=== PATIENT | female | born 1960 | race Caucasian/White ===

== ENCOUNTER 2024-07-05 16:15 | Emergency (ER) | payer MEDICARE, OTHER ==
[~2024-07-05] VITALS: Ht 154.9 cm; Wt 70.3 kg
[2024-07-05 16:30] VITALS: TEMP 98.6
[2024-07-05 18:03] LABS: CORONAVIRUS COVID-19 AG NEGATIVE (NEGATIVE); INFLUENZA A AG NEGATIVE (NEGATIVE); INFLUENZA B AG NEGATIVE (NEGATIVE)
[2024-07-05 19:45] VITALS: PULSE 81; RESP 19
[2024-07-05 20:03] VITALS: PULSE 72; RESP 16; O2SAT 93
[2024-07-05] MEDS: ALBUTEROL/IPRATROPIUM 3 ML NEB NEB ONE (20:03)
[2024-07-05] MEDS ORDERED: PREDNISONE50 MG PO (20:15)
[2024-07-05] MEDS ORDERED: VENTOLIN HFA18 GM INH (20:15)
[2024-07-05 20:19] VITALS: BP 124/73; PULSE 86; RESP 20; TEMP 97.8; O2SAT 95
== END 2024-07-05 20:21 | disposition home or self-care (01) ==
LOC: ER 19:12
DX: R05.9 Cough, unspecified (principal); J06.9 Acute upper respiratory infection, unspecified; I10 Essential (primary) hypertension; E78.5 Hyperlipidemia, unspecified; F41.9 Anxiety disorder, unspecified; F32.A Depression, unspecified; Z11.52 Encounter for screening for COVID-19; F17.210 Nicotine dependence, cigarettes, uncomplicated
CPT/HCPCS: 71046; 94640; 94799; 99283